=== PATIENT | male | born 1950 | race Caucasian/White ===

== ENCOUNTER 2016-11-20 09:52 | Emergency (ER) | payer MEDICARE ==
[~2016-11-20] VITALS: Ht 170.2 cm; Wt 86.0 kg
[2016-11-20] MEDS ORDERED: SODIUM CHLORIDE 0.9% 1,000 ML IV ONE (10:21)
[2016-11-20] MEDS ORDERED: MORPHINE SULFATE 4 MG/ML, 1ML IVPush PRN (10:30)
[2016-11-20] MEDS ORDERED: MORPHINE SULFATE 4 MG/ML, 1ML ONE (10:30)
[2016-11-20] MEDS ORDERED: KETOROLAC 30 MG/1 ML ONE (10:30)
[2016-11-20] MEDS ORDERED: KETOROLAC 30 MG/1 ML IVPush ONE (10:30)
[2016-11-20] MEDS ORDERED: ASPIRIN 81 MG TABLET CHEW ONE (10:30)
[2016-11-20 10:49] LABS: BLOOD UREA NITROGEN 21 mg/dL (7-18)
[2016-11-20 10:57] LABS: HEMOGLOBIN 16.8 g/dL (13.7-18.0)
[2016-11-20 10:58] LABS: IS PT STATUS REG ER OR PRE ER? YES
[2016-11-20] MEDS ORDERED: ASPIRIN 81 MG TABLET CHEW PO ONE (11:00)
[2016-11-20] MEDS ORDERED: PLEASE ENTER ALLERGIES MC SCH ×2 (11:00)
[2016-11-20] MEDS ORDERED: OMNIPAQUE 350 MG/ML, 100ML BOTTLE ONE (11:35)
[2016-11-20 13:21] VITALS: BP 160/78
== END 2016-11-20 13:23 | disposition home or self-care (01) ==
LOC: ED 10:56
DX: R07.89 Other chest pain (principal); I71.6 Thoracoabdominal aortic aneurysm, without rupture; I10 Essential (primary) hypertension; N40.0 Benign prostatic hyperplasia without lower urinary tract symptoms
CPT/HCPCS: 36415; 71010; 71275; 80048; 82040; 84484; 85025; 85610; 93005; 96361; 96374; 96375; 99285; J1885; J7030; Q9967

== ENCOUNTER → 2017-01-08 | Outpatient (CLI) | payer MEDICARE | END | disposition home or self-care (01) | LOC: CFH 07:44 | PROVIDERS: ATTEND Internal Medicine Gastroenterology | DX: B19.20 Unspecified viral hepatitis C without hepatic coma (principal); K80.20 Calculus of gallbladder without cholecystitis without obstruction | CPT/HCPCS: 76700 ==

== ENCOUNTER 2017-01-29 11:05 | Inpatient (IN) | payer MEDICARE ==
[~2017-01-29] VITALS: Ht 170.2 cm; Wt 84.7 kg
[2017-01-29] MEDS ORDERED: DILTIAZEM 5 MG/ML, 5ML ONE (12:18)
[2017-01-29] MEDS ORDERED: ASPIRIN 81 MG TABLET CHEW PO ONE (12:30)
[2017-01-29] MEDS ORDERED: SODIUM CHLORIDE FLUSH 10ML SYR IVF ONE (12:30)
[2017-01-29] MEDS ORDERED: DILTIAZEM 5 MG/ML, 5ML IV ONE (12:30)
[2017-01-29] MEDS ORDERED: ASPIRIN 81 MG TABLET CHEW ONE (12:50)
[2017-01-29] MEDS: DILTIAZEM 125 MG in DEXTROSE 5% 100 ML IV SCH (12:59)
[2017-01-29 13:15] LABS: BLOOD UREA NITROGEN 25 mg/dL (7-18)
[2017-01-29] MEDS ORDERED: SODIUM CHLORIDE FLUSH 10ML SYR IVF PRN (14:00)
[2017-01-29] MEDS ORDERED: LABE100T3 PO (14:56)
[2017-01-29] MEDS ORDERED: BP MED PO (14:56)
[2017-01-29] MEDS ORDERED: TAMS-11 PO (14:56)
[2017-01-29] MEDS ORDERED: FLUT9.9S16 NAS (14:56)
[2017-01-29] MEDS ORDERED: MONTELUKAST PO (14:56)
[2017-01-29] MEDS ORDERED: DILTIAZEM 5 MG/ML, 5ML IVPush PRN (15:30)
[2017-01-29] MEDS ORDERED: DOCUSATE 100 MG CAPSULE PO PRN (15:30)
[2017-01-29] MEDS ORDERED: ENOXAPARIN 80 MG/0.8 ML SQ SCH ×2 (15:30→20:00)
[2017-01-29 15:39] LABS: IS PT STATUS REG ER OR PRE ER? NO
[2017-01-29] MEDS ORDERED: LABETALOL 5MG/ML, 20ML IVPush PRN (16:00)
[2017-01-29 16:47] VITALS: BP 159/85
[2017-01-29] MEDS: [UNRECOGNIZED DRUG - OTHER] MC SCH (18:33)
[2017-01-29 18:53] VITALS: BP 121/73
[2017-01-29] MEDS: SODIUM CHLORIDE FLUSH 3ML SYRINGE IVF SCH (21:00)
[2017-01-29 21:37] LABS: IS PT STATUS REG ER OR PRE ER? NO
[2017-01-29 21:50] VITALS: BP 110/71
[2017-01-29] MEDS: LABETALOL 100 MG TABLET PO SCH (21:52)
[2017-01-29] MEDS: DILTIAZEM 125 MG in SODIUM CHLORIDE 0.9% 100 ML IV SCH (21:53)
[2017-01-30] MEDS: DILTIAZEM 125 MG in DEXTROSE 5% 100 ML IV SCH (00:38)
[2017-01-30 01:33] VITALS: BP 113/67
[2017-01-30] MEDS: [UNRECOGNIZED DRUG - OTHER] MC SCH ×2 (01:50→09:21)
[2017-01-30 05:33] VITALS: BP 126/74
[2017-01-30] MEDS: ASPIRIN 325 MG TABLET EC PO SCH (05:34)
[2017-01-30 06:39] LABS: BLOOD UREA NITROGEN 22 mg/dL (7-18)
[2017-01-30] MEDS: DILTIAZEM 125 MG in SODIUM CHLORIDE 0.9% 100 ML IV SCH (07:30)
[2017-01-30 08:02] VITALS: BP 111/74
[2017-01-30] MEDS: TAMSULOSIN 0.4 MG CAP.ER.24H PO SCH (09:19)
[2017-01-30] MEDS: APIXABAN 5 MG TABLET PO SCH ×2 (09:19→21:01)
[2017-01-30] MEDS: LABETALOL 100 MG TABLET PO SCH (09:19)
[2017-01-30] MEDS: DILTIAZEM 120 MG TABLET PO SCH ×3 (09:20→21:01)
[2017-01-30] MEDS: SODIUM CHLORIDE FLUSH 3ML SYRINGE IVF SCH ×2 (09:20→21:00)
[2017-01-30 12:38] VITALS: BP 114/76
[2017-01-30] MEDS: METOPROLOL TARTRATE 25 MG TABLET PO SCH (18:29)
[2017-01-30 19:05] VITALS: BP 111/75
[2017-01-31 04:49] VITALS: BP 113/75
[2017-01-31] MEDS: ASPIRIN 325 MG TABLET EC PO SCH (04:53)
[2017-01-31] MEDS: METOPROLOL TARTRATE 25 MG TABLET PO SCH (04:53)
[2017-01-31 07:21] VITALS: BP 114/78
[2017-01-31] MEDS: TAMSULOSIN 0.4 MG CAP.ER.24H PO SCH (09:33)
[2017-01-31] MEDS: SODIUM CHLORIDE FLUSH 3ML SYRINGE IVF SCH (09:33)
[2017-01-31] MEDS: APIXABAN 5 MG TABLET PO SCH (09:33)
[2017-01-31] MEDS: DILTIAZEM 120 MG TABLET PO SCH (09:33)
[2017-01-31] MEDS ORDERED: DILT120T3 PO (10:49)
[2017-01-31] MEDS ORDERED: APIX5TAB PO (10:49)
[2017-01-31] MEDS ORDERED: METO25TA35 PO (10:49)
== END 2017-01-31 12:20 | disposition home or self-care (01) | DRG 305 ==
LOC: ED 12:46 → EDIP 14:00 → 5SO 16:37
PROVIDERS: ADMIT Family Medicine; ATTEND Family Medicine
DX: I10 Essential (primary) hypertension (principal); I48.0 Paroxysmal atrial fibrillation; B18.2 Chronic viral hepatitis C; G47.33 Obstructive sleep apnea (adult) (pediatric); I71.2 Thoracic aortic aneurysm, without rupture; J44.9 Chronic obstructive pulmonary disease, unspecified; N40.0 Benign prostatic hyperplasia without lower urinary tract symptoms; F12.90 Cannabis use, unspecified, uncomplicated; F14.90 Cocaine use, unspecified, uncomplicated; M54.9 Dorsalgia, unspecified; G89.29 Other chronic pain; M54.12 Radiculopathy, cervical region; Z82.3 Family history of stroke; Z87.891 Personal history of nicotine dependence
CPT/HCPCS: 36415; 71010; 80048; 82040; 83036; 83735; 83880; 84100; 84439; 84443; 84484; 85025; 85610; 85730; 93005; 93306; 96374; J1650

== ENCOUNTER → 2017-08-18 | Outpatient (CLI) | payer MEDICARE ==
[~2017-08-18] MED LIST: APIX5TAB PO; BP MED PO; DILT120T3 PO; FLUT9.9S16 NAS; LABE100T3 PO; METO25TA35 PO; MONTELUKAST PO; OMNIPAQUE 350 MG/ML, 100ML BOTTLE ONE; TAMS-11 PO
== END | disposition home or self-care (01) ==
LOC: CFH 09:07
PROVIDERS: ATTEND Internal Medicine Gastroenterology
DX: K80.20 Calculus of gallbladder without cholecystitis without obstruction (principal); I71.4 Abdominal aortic aneurysm, without rupture; I71.2 Thoracic aortic aneurysm, without rupture; K76.89 Other specified diseases of liver
CPT/HCPCS: 74177; Q9967

== ENCOUNTER → 2018-02-08 | Outpatient (CLI) | payer MEDICARE ==
[~2018-02-08] MED LIST changes: -OMNIPAQUE 350 MG/ML, 100ML BOTTLE ONE
== END | disposition home or self-care (01) ==
LOC: CFH 13:20
PROVIDERS: ATTEND Registered Nurse
DX: F12.20 Cannabis dependence, uncomplicated (principal)
CPT/HCPCS: 71250

== ENCOUNTER → 2018-03-30 | Outpatient (CLI) | payer MEDICARE ==
[~2018-03-30] MED LIST changes: +AMLO10TA2 PO; +METO25TA91 PO; +MONT10TA9 PO; +PRAV10TA2 PO
[2018-03-30 10:02] LABS: BASOPHILS # (AUTO) 0.03 x10^3/uL (0-0.1); BASOPHILS % (AUTO) 0 % (0-1); EOSINOPHILS # (AUTO) 0.27 x10^3/uL (0-0.4); EOSINOPHILS % (AUTO) 4 % (1-7); LYMPHOCYTES # (AUTO) 2.26 x10^3/uL (1-3.4); LYMPHOCYTES % (AUTO) 31 % (22-44); MD NO; MEAN CORPUSCULAR HEMOGLOBIN 31.8 pg (27.5-34.5); MEAN CORPUSCULAR HGB CONC 33.4 g/dL (33.2-36.2); MEAN CORPUSCULAR VOLUME 95.3 fL (81-97); MEAN PLATELET VOLUME 8.6 fL (7.4-10.4); MONOCYTES # (AUTO) 0.76 x10^3/uL (0.2-0.8); MONOCYTES % (AUTO) 11 % (2-9); NEUTROPHILS # (AUTO) 3.95 x10^3/uL (1.8-6.8); NEUTROPHILS % (AUTO) 54 % (42-75); PLATELET COUNT 161 x10^3/uL (130-400); RED BLOOD COUNT 4.62 x10^6/uL (4.38-5.82); RED CELL DISTRIBUTION WIDTH 13.5 % (9.4-14.8)
[2018-03-30 10:14] LABS: ALANINE AMINOTRANSFERASE 33 U/L (12-78); ALBUMIN 3.2 g/dL (3.4-5.0); ANION GAP 7 mmol/L (5-15); CALCIUM 8.7 mg/dL (8.5-10.1); CHLORIDE 110 mmol/L (98-107); CREATININE 1.13 mg/dL (0.7-1.3)
[2018-03-30 10:16] LABS: ALKALINE PHOSPHATASE 58 U/L (45-117); BILIRUBIN,TOTAL 0.7 mg/dL (0.2-1.0); TOTAL PROTEIN 7.2 g/dL (6.4-8.2)
== END | disposition home or self-care (01) ==
LOC: STAR 09:00
PROVIDERS: ATTEND Surgery
DX: Z01.818 Encounter for other preprocedural examination (principal); J98.4 Other disorders of lung; J44.9 Chronic obstructive pulmonary disease, unspecified; I10 Essential (primary) hypertension; N40.0 Benign prostatic hyperplasia without lower urinary tract symptoms
CPT/HCPCS: 36415; 71046; 80053; 85025; 93005

== ENCOUNTER 2018-04-08 08:46 | Inpatient (IN) | payer MEDICARE ==
[~2018-04-08] VITALS: Ht 172.7 cm; Wt 92.7 kg
[~2018-04-08 08:46] MED LIST changes: +BUPIVACAINE/PF 0.25% ONE; -LABE100T3 PO; +LABE100T6 PO; +LIDOCAINE GEL 2%, 5ML ONE; +cloniDINE/PF 100 MCG/ML, 10 ML ONE
[2018-04-08] MEDS ORDERED: BUPIVACAINE/PF 0.5% ONE (09:06)
[2018-04-08] MEDS ORDERED: LACTATED RINGERS 1,000 ML IV SCH (09:19)
[2018-04-08] MEDS ORDERED: GABAPENTIN 300 MG CAPSULE PO ONE (09:30)
[2018-04-08] MEDS ORDERED: ACETAMINOPHEN 500 MG TABLET PO ONE (09:30)
[2018-04-08] MEDS ORDERED: TAMSULOSIN 0.4 MG CAP.ER.24H PO ONE (09:30)
[2018-04-08 09:51] VITALS: BP 150/86
[2018-04-08] MEDS ORDERED: FENTANYL PF 250 MCG/5ML ONE (09:54)
[2018-04-08] MEDS ORDERED: MIDAZOLAM 1 MG/ML, 2ML ONE (09:54)
[2018-04-08] MEDS ORDERED: PROPOFOL 10 MG/ML, 20ML ONE (10:35)
[2018-04-08] MEDS ORDERED: NEOSTIGMINE 1 MG/ML, 10ML ONE (10:35)
[2018-04-08] MEDS ORDERED: ONDANSETRON 2MG/ML, 2ML ONE (10:35)
[2018-04-08] MEDS ORDERED: GLYCOPYRROLATE 0.2MG/1ML, 5ML ONE (10:35)
[2018-04-08] MEDS ORDERED: ROCURONIUM 10MG/ML,5ML ONE (10:35)
[2018-04-08] MEDS ORDERED: DEXAMETHASONE 4 MG/ML, 1ML ONE (10:35)
[2018-04-08] MEDS ORDERED: LABETALOL 5MG/ML, 20ML ONE (10:36)
[2018-04-08] MEDS ORDERED: ALBUTEROL/IPRATROPIUM 2.5MG/0.5MG, 3 ML NPPB PRN (11:00)
[2018-04-08] MEDS ORDERED: OXYcodone 5 MG/5 ML ORAL.SOL UDC PO PRN (11:00)
[2018-04-08] MEDS ORDERED: MIDAZOLAM 1 MG/ML, 2ML IV PRN (11:00)
[2018-04-08] MEDS ORDERED: hydrALAzine 20 MG/ML, 1ML IV PRN (11:00)
[2018-04-08] MEDS ORDERED: SCOPOLAMINE PATCH, 1.5MG PATCH.TD72 TD PRN ×2 (11:00→14:00)
[2018-04-08] MEDS ORDERED: ONDANSETRON 2MG/ML, 2ML IV PRN ×2 (11:00→14:00)
[2018-04-08] MEDS ORDERED: PROMETHAZINE 25 MG/ML, 1ML IV PRN (11:00)
[2018-04-08] MEDS ORDERED: MEPERIDINE/PF 25MG/0.5ML IVPush PRN (11:00)
[2018-04-08] MEDS ORDERED: HYDROmorphone 1 MG/ML, 1ML IV PRN (11:00)
[2018-04-08] MEDS ORDERED: METOPROLOL 1 MG/ML, 5ML IV PRN (11:00)
[2018-04-08] MEDS ORDERED: FENTANYL PF 100 MCG/2ML ONE ×2 (11:18→12:19)
[2018-04-08] MEDS ORDERED: PROMETHAZINE 25 MG/ML, 1ML ONE (11:59)
[2018-04-08] MEDS ORDERED: OXYcodone 5 MG/5 ML ORAL.SOL UDC ONE (12:20)
[2018-04-08] MEDS: FENTANYL PF 100 MCG/2ML IV PRN ×2 (12:23→12:30)
[2018-04-08] MEDS ORDERED: HYDROmorphone 2 MG/ML, 1ML ONE (12:28)
[2018-04-08 13:09] VITALS: BP 146/96
[2018-04-08] MEDS ORDERED: OXYcodone IR 5MG TABLET PO PRN (14:00)
[2018-04-08] MEDS ORDERED: HYDROmorphone 1 MG/ML, 1ML IVPush PRN (14:00)
[2018-04-08] MEDS ORDERED: CALCIUM CARBONATE 500 MG TAB.CHEW PO PRN (14:00)
[2018-04-08] MEDS ORDERED: HALOPERIDOL 5 MG/ML IVPush PRN (14:00)
[2018-04-08] MEDS ORDERED: DEXAMETHASONE 4 MG/ML, 1ML IVPush PRN (14:00)
[2018-04-08] MEDS ORDERED: DIPHENHYDRAMINE 25 MG CAPSULE PO PRN (14:00)
[2018-04-08] MEDS ORDERED: DIPHENHYDRAMINE 50 MG/ML, 1ML IVPush PRN (14:00)
[2018-04-08] MEDS ORDERED: LORazepam 1MG TABLET PO PRN (14:00)
[2018-04-08] MEDS ORDERED: LORazepam 2 MG/ML, 1ML IVPush PRN (14:00)
[2018-04-08] MEDS ORDERED: ALBUTEROL SULFATE 2.5 MG/3 ML NPPB PRN (15:30)
[2018-04-08] MEDS ORDERED: CEFOTETAN 2 GM ONE (15:47)
[2018-04-08] MEDS: IBUPROFEN 800 MG TABLET PO SCH ×2 (16:01→20:58)
[2018-04-08] MEDS: D5%-0.45NACL+KCL 20MEQ 1,000 ML IV SCH (16:02)
[2018-04-08] MEDS: ACETAMINOPHEN 500 MG TABLET PO SCH ×2 (16:02→22:24)
[2018-04-08 18:50] VITALS: BP 154/90
[2018-04-08] MEDS: METOPROLOL SUCCINATE 25 MG TAB.ER.24H PO SCH (20:58)
[2018-04-08] MEDS: PRAVASTATIN 20 MG TABLET PO SCH (20:58)
[2018-04-08 23:31] VITALS: BP 153/86
[2018-04-09 04:25] VITALS: BP 165/90
[2018-04-09] MEDS: ACETAMINOPHEN 500 MG TABLET PO SCH ×4 (04:30→22:46)
[2018-04-09] MEDS: D5%-0.45NACL+KCL 20MEQ 1,000 ML IV SCH ×2 (05:10→16:13)
[2018-04-09 05:13] LABS: BASOPHILS # (AUTO) 0.02 x10^3/uL (0-0.1); BASOPHILS % (AUTO) 0 % (0-1); EOSINOPHILS # (AUTO) 0.01 x10^3/uL (0-0.4); EOSINOPHILS % (AUTO) 0 % (1-7); LYMPHOCYTES # (AUTO) 1.29 x10^3/uL (1-3.4); LYMPHOCYTES % (AUTO) 9 % (22-44); MD NO; MEAN CORPUSCULAR HEMOGLOBIN 32.3 pg (27.5-34.5); MEAN CORPUSCULAR HGB CONC 33.9 g/dL (33.2-36.2); MEAN CORPUSCULAR VOLUME 95.3 fL (81-97); MEAN PLATELET VOLUME 9.1 fL (7.4-10.4); MONOCYTES # (AUTO) 0.62 x10^3/uL (0.2-0.8); MONOCYTES % (AUTO) 4 % (2-9); NEUTROPHILS # (AUTO) 12.29 x10^3/uL (1.8-6.8); NEUTROPHILS % (AUTO) 86 % (42-75); PLATELET COUNT 166 x10^3/uL (130-400); RED BLOOD COUNT 4.82 x10^6/uL (4.38-5.82); RED CELL DISTRIBUTION WIDTH 13.1 % (9.4-14.8)
[2018-04-09 05:22] LABS: ANION GAP 5 mmol/L (5-15); CALCIUM 8.7 mg/dL (8.5-10.1); CHLORIDE 111 mmol/L (98-107); CREATININE 1.28 mg/dL (0.7-1.3)
[2018-04-09 08:05] VITALS: BP 166/85
[2018-04-09] MEDS: IBUPROFEN 800 MG TABLET PO SCH ×3 (10:03→20:10)
[2018-04-09] MEDS: ENOXAPARIN 40 MG/0.4 ML SQ SCH (10:04)
[2018-04-09] MEDS: METOPROLOL SUCCINATE 25 MG TAB.ER.24H PO SCH ×2 (10:04→20:09)
[2018-04-09 13:54] VITALS: BP_SYST 169; BP_SYST 172; BP_DIAS 79; BP_DIAS 84
[2018-04-09 19:37] VITALS: BP 166/86
[2018-04-09] MEDS: PRAVASTATIN 20 MG TABLET PO SCH (20:09)
[2018-04-10 03:12] VITALS: BP 148/89
[2018-04-10 03:13] VITALS: BP 165/89
[2018-04-10] MEDS: ACETAMINOPHEN 500 MG TABLET PO SCH ×2 (05:03→10:46)
[2018-04-10 05:41] LABS: BASOPHILS # (AUTO) 0.08 x10^3/uL (0-0.1); BASOPHILS % (AUTO) 1 % (0-1); EOSINOPHILS # (AUTO) 0.09 x10^3/uL (0-0.4); EOSINOPHILS % (AUTO) 1 % (1-7); LYMPHOCYTES # (AUTO) 4.05 x10^3/uL (1-3.4); LYMPHOCYTES % (AUTO) 27 % (22-44); MD NO; MEAN CORPUSCULAR HEMOGLOBIN 32.6 pg (27.5-34.5); MEAN CORPUSCULAR HGB CONC 33.7 g/dL (33.2-36.2); MEAN CORPUSCULAR VOLUME 96.6 fL (81-97); MEAN PLATELET VOLUME 9.6 fL (7.4-10.4); MONOCYTES # (AUTO) 1.38 x10^3/uL (0.2-0.8); MONOCYTES % (AUTO) 9 % (2-9); NEUTROPHILS # (AUTO) 9.23 x10^3/uL (1.8-6.8); NEUTROPHILS % (AUTO) 62 % (42-75); PLATELET COUNT 182 x10^3/uL (130-400); RED CELL DISTRIBUTION WIDTH 13.4 % (9.4-14.8)
[2018-04-10 05:48] LABS: CALCIUM 8.7 mg/dL (8.5-10.1); CHLORIDE 111 mmol/L (98-107)
[2018-04-10 05:51] LABS: CREATININE 1.07 mg/dL (0.7-1.3)
[2018-04-10 06:12] LABS: ANION GAP 9 mmol/L (5-15)
[2018-04-10 07:35] VITALS: BP 162/101
[2018-04-10] MEDS: METOPROLOL SUCCINATE 25 MG TAB.ER.24H PO SCH (09:00)
[2018-04-10] MEDS: ENOXAPARIN 40 MG/0.4 ML SQ SCH (09:15)
[2018-04-10] MEDS: IBUPROFEN 800 MG TABLET PO SCH (09:15)
[2018-04-10] MEDS ORDERED: IBUP200T49 PO (10:25)
[2018-04-10] MEDS ORDERED: ACET325C5 PO (10:25)
[2018-04-10] MEDS ORDERED: CALC200T3 PO (10:26)
[2018-04-10] MEDS ORDERED: DIPH25CA61 PO (10:27)
== END 2018-04-10 11:19 | disposition home or self-care (01) | DRG 331 ==
LOC: ORIP 08:46 → 4NOR 13:10
PROVIDERS: ADMIT Surgery; ATTEND Surgery
PROC: 0DBH4ZZ Excision of Cecum, Percutaneous Endoscopic Approach (ICD-10-PCS; principal; 2018-04-08 10:30)
DX: K63.5 Polyp of colon (principal); K63.9 Disease of intestine, unspecified; E66.01 Morbid (severe) obesity due to excess calories; G47.30 Sleep apnea, unspecified; J44.9 Chronic obstructive pulmonary disease, unspecified; Z79.899 Other long term (current) drug therapy; Z79.1 Long term (current) use of non-steroidal anti-inflammatories (NSAID); Z79.2 Long term (current) use of antibiotics; Z68.31 Body mass index [BMI] 31.0-31.9, adult
CPT/HCPCS: 36415; 80048; 85025; 88307; 94660; J1100; J1650; J2250; J2405; J2550; J2704; J2710; J3010; J3490; J7613; C1765; J0735; J3480; J7120; S0074

== ENCOUNTER → 2018-09-28 | Outpatient (CLI) | payer MEDICARE ==
[~2018-09-28] MED LIST changes: +ACET325C5 PO; -AMLO10TA2 PO; +AMLO10TA8 PO; -BUPIVACAINE/PF 0.25% ONE; +CALC200T3 PO; +DIPH25CA61 PO; +IBUP200T49 PO; -LIDOCAINE GEL 2%, 5ML ONE; -cloniDINE/PF 100 MCG/ML, 10 ML ONE
== END | disposition home or self-care (01) ==
LOC: CFH 09:03
PROVIDERS: ATTEND Family Medicine
DX: I71.4 Abdominal aortic aneurysm, without rupture (principal); I71.2 Thoracic aortic aneurysm, without rupture; I70.0 Atherosclerosis of aorta
CPT/HCPCS: 93978

== ENCOUNTER → 2018-10-12 | Outpatient (CLI) | payer MEDICARE | END | disposition home or self-care (01) | LOC: CFH 13:31 | PROVIDERS: ATTEND Internal Medicine Cardiovascular Disease | DX: I34.0 Nonrheumatic mitral (valve) insufficiency (principal); I48.91 Unspecified atrial fibrillation; I10 Essential (primary) hypertension; E78.5 Hyperlipidemia, unspecified; J44.9 Chronic obstructive pulmonary disease, unspecified; F12.90 Cannabis use, unspecified, uncomplicated | CPT/HCPCS: 93306 ==

== ENCOUNTER 2018-10-19 14:09 | Outpatient (CLI) | payer MEDICARE ==
[2018-10-19] MEDS ORDERED: OMNIPAQUE 350 MG/ML, 100ML BOTTLE ONE (15:29)
== END 2018-10-19 23:59 | disposition home or self-care (01) ==
LOC: CFH 14:09
DX: I71.4 Abdominal aortic aneurysm, without rupture (principal); I71.2 Thoracic aortic aneurysm, without rupture; G31.9 Degenerative disease of nervous system, unspecified; K80.20 Calculus of gallbladder without cholecystitis without obstruction; K76.89 Other specified diseases of liver
CPT/HCPCS: 71275; 74175; Q9967

== ENCOUNTER 2018-10-28 10:09 | Day surgery (SDC) | payer MEDICARE ==
[~2018-10-28] VITALS: Ht 172.7 cm; Wt 91.0 kg
[2018-10-28] MEDS ORDERED: TAMS0.4C2 PO (10:36)
[2018-10-28] MEDS ORDERED: DILT120T PO (10:36)
[2018-10-28] MEDS ORDERED: TRAZ50TA66 PO (10:36)
[2018-10-28] MEDS ORDERED: APIX5TAB PO (10:36)
[2018-10-28] MEDS ORDERED: ARFO15VI INH (10:36)
[2018-10-28] MEDS ORDERED: ALBU18HF INH (10:37)
[2018-10-28 10:38] VITALS: BP 135/99
[2018-10-28 11:15] LABS: ANION GAP 6 mmol/L (5-15); CALCIUM 8.7 mg/dL (8.5-10.1); CHLORIDE 113 mmol/L (98-107); CREATININE 1.14 mg/dL (0.7-1.3)
[2018-10-28] MEDS ORDERED: PROPOFOL 10 MG/ML, 20ML ONE (12:02)
== END 2018-10-28 14:05 | disposition home or self-care (01) ==
LOC: CACL 10:09
PROVIDERS: ATTEND Internal Medicine Cardiovascular Disease
DX: I48.91 Unspecified atrial fibrillation (principal); J44.9 Chronic obstructive pulmonary disease, unspecified; I10 Essential (primary) hypertension; J30.9 Allergic rhinitis, unspecified; B19.20 Unspecified viral hepatitis C without hepatic coma; Z68.30 Body mass index [BMI] 30.0-30.9, adult; Z79.01 Long term (current) use of anticoagulants; Z79.899 Other long term (current) drug therapy; Z98.890 Other specified postprocedural states
CPT/HCPCS: 36415; 80048; 92960; J2704

== ENCOUNTER 2019-01-26 11:42 | Emergency (ER) | payer MEDICARE ==
[~2019-01-26] VITALS: Ht 172.7 cm; Wt 83.9 kg
[~2019-01-26 11:42] MED LIST changes: +ALBU18HF INH; +ARFO15VI INH; +DILT120T PO; +TAMS0.4C2 PO; +TRAZ50TA66 PO
[2019-01-26] MEDS ORDERED: ONDANSETRON 2MG/ML, 2ML ONE ×2 (12:25→14:24)
[2019-01-26] MEDS ORDERED: ONDANSETRON 2MG/ML, 2ML IVPush ONE ×2 (12:30→15:00)
[2019-01-26 12:31] LABS: BASOPHILS # (AUTO) 0.02 x10^3/uL (0-0.1); BASOPHILS % (AUTO) 0 % (0-1); EOSINOPHILS % (AUTO) 0 % (1-7); LYMPHOCYTES # (AUTO) 1.05 x10^3/uL (1-3.4); LYMPHOCYTES % (AUTO) 9 % (22-44); MD NO; MEAN CORPUSCULAR HEMOGLOBIN 32.7 pg (27.5-34.5); MEAN CORPUSCULAR HGB CONC 32.8 g/dL (33.2-36.2); MEAN CORPUSCULAR VOLUME 99.7 fL (81-97); MONOCYTES # (AUTO) 0.26 x10^3/uL (0.2-0.8); MONOCYTES % (AUTO) 2 % (2-9); NEUTROPHILS # (AUTO) 10.11 x10^3/uL (1.8-6.8); NEUTROPHILS % (AUTO) 88 % (42-75); PLATELET COUNT 145 x10^3/uL (130-400); RED BLOOD COUNT 5.82 x10^6/uL (4.38-5.82); RED CELL DISTRIBUTION WIDTH 13.9 % (9.4-14.8)
--- NOTE | 2019-01-26 12:38 | NUR ---
Assumed care of patient. C/O nausea since this AM and emesis x 1 since in ED. C/O left sided ABD pain only tender on palaption. IV started and zofran admin. Will continue to monitor.
[2019-01-26 12:42] LABS: ALBUMIN 4.2 g/dL (3.4-5.0); ANION GAP 8 mmol/L (5-15); CALCIUM 9.8 mg/dL (8.5-10.1); CHLORIDE 105 mmol/L (98-107)
[2019-01-26 12:47] LABS: ALANINE AMINOTRANSFERASE 45 U/L (12-78); ALKALINE PHOSPHATASE 55 U/L (45-117); BILIRUBIN,TOTAL 1.6 mg/dL (0.2-1.0); CREATININE 1.23 mg/dL (0.7-1.3); TOTAL PROTEIN 8.7 g/dL (6.4-8.2); TROPONIN I < 0.015 ng/mL (0.000-0.045)
[2019-01-26] MEDS ORDERED: OMNIPAQUE 350 MG/ML, 100ML BOTTLE ONE (13:39)
--- NOTE | 2019-01-26 13:47 | NUR ---
Resting comfortably in [facility]. Remains hypertensive.
[2019-01-26 14:41] VITALS: BP 174/93
--- NOTE | 2019-01-26 14:41 | NUR ---
Patient/Caregiver given discharge instructions and they have confirmed that they understand the instructions. Patient ambulatory with steady gait.
== END 2019-01-26 14:43 | disposition home or self-care (01) ==
LOC: ED 14:37
DX: K80.20 Calculus of gallbladder without cholecystitis without obstruction (principal); I10 Essential (primary) hypertension; J44.9 Chronic obstructive pulmonary disease, unspecified; I48.91 Unspecified atrial fibrillation; Z86.19 Personal history of other infectious and parasitic diseases; Z87.891 Personal history of nicotine dependence; Z90.89 Acquired absence of other organs
CPT/HCPCS: 36415; 71045; 74177; 80053; 83690; 83880; 84484; 85025; 93005; 96374; 96376; 99284; J2405; Q9967

== ENCOUNTER → 2020-07-17 | Outpatient (CLI) | payer MEDICARE ==
[~2020-07-17] MED LIST changes: -ACET325C5 PO; +ACET325C6 PO; +AMLO-211 PO; -AMLO10TA8 PO; +MONT10TA11 PO; -MONT10TA9 PO
== END | disposition home or self-care (01) ==
LOC: CVU 08:52
PROVIDERS: ATTEND Registered Nurse
DX: I08.1 Rheumatic disorders of both mitral and tricuspid valves (principal); I48.91 Unspecified atrial fibrillation; I11.9 Hypertensive heart disease without heart failure; J44.9 Chronic obstructive pulmonary disease, unspecified
CPT/HCPCS: 93306; 93356